=== PATIENT | female | born 1975 | race Caucasian/White ===

== ENCOUNTER 2021-01-16 11:01 | Emergency (ER) | payer MEDICAID, SELFPAY ==
--- NOTE | ~2021-01-16 | XR_ITS ---
EXAMINATION: LEFT FOOT AND LEFT ANKLE. CLINICAL INFORMATION: Swelling post crush injury. COMPARISON: None TECHNIQUE: Left foot 3 views. Left ankle 2 views. : FINDINGS: LEFT FOOT: There is no visible acute fracture, dislocation or subluxation. The soft tissues are normal. LEFT ANKLE: The ankle mortise and subtalar joints are normal. No acute fracture dislocation. The soft tissues are normal. XR/XR foot LT 2V IMPRESSION: Unremarkable left foot exam. Unremarkable left ankle exam.
--- NOTE | ~2021-01-16 | XR_ITS ---
EXAMINATION: LEFT FOOT AND LEFT ANKLE. CLINICAL INFORMATION: Swelling post crush injury. COMPARISON: None TECHNIQUE: Left foot 3 views. Left ankle 2 views. : FINDINGS: LEFT FOOT: There is no visible acute fracture, dislocation or subluxation. The soft tissues are normal. LEFT ANKLE: The ankle mortise and subtalar joints are normal. No acute fracture dislocation. The soft tissues are normal. XR/XR ankle LT min 3V IMPRESSION: Unremarkable left foot exam. Unremarkable left ankle exam.
[2021-01-16 11:30] VITALS: BP 109/76; PULSE 85; RESP 16; TEMP 36.8; O2SAT 98; BMI 24.7
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
== END 2021-01-16 12:31 | disposition home or self-care (01) ==
PROVIDERS: Emergency Provider Emergency Medicine Emergency Medical Services
DX: M79.672 Pain in left foot (principal)
CPT/HCPCS: 73610; 73620; 99283

== ENCOUNTER 2021-04-29 12:14 | Emergency (ER) | payer MEDICAID, SELFPAY ==
[2021-04-29 13:20] VITALS: BP 129/92; PULSE 69; RESP 18; TEMP 36.8; O2SAT 99; BMI 23.9
--- NOTE | 2021-04-29 15:10 | ED_ITS ---
HPI - Extremity Injury (Lower) General Chief Complaint: Extremity Injury, Lower Stated Complaint: ACL tear/inj Time Seen by Provider: 04/29/21 12:16 Source: patient Mode of arrival: ambulatory Limitations: no limitations History of Present Illness HPI Narrative: 45-year-old female presenting to the ED with complaints of left knee injury possible ACL tear. She reports that she was seen at the urgent care approxim ately last weekend after she had a fall while she was skiing and they did an x- ray and told her there was no broken bones although they explain examined her and reported that she possibly has an ACL tear. They explained to her that she will need an MRI. Therefore she tried to follow-up with her PCP and her PCP reported that they no longer take her insurance therefore she came here for ?an MRI?. She is currently in a knee immobilizer along with crutches and is taking Motrin and Tylenol and is providing mild symptomatic relief. She reports that she does not want any pain medications that she just wants an MRI today and she does not want to leave without her MRI today. She denies any new injuries complaints or concerns or falls. MD complaint: knee injury Onset (ago): week(s) (Last week) Injury: Left: knee Type of Injury: unknown Place: street/outdoors (While skiing) Severity: severe Severity scale (1-10): >10 Relieving factors: nothing Exacerbating factors: weight bearing, movement and palpation Context: fall Associated symptoms: swelling, numbness, tingling and unable to bear weight Other symptoms: none Treatments prior to arrival: other (Knee immobilizer and crutches) Related Data Allergies Allergy/AdvReac Type Severity Reaction Status Date / Time No Known Allergies Allergy Verified 04/29/21 13:20 Review of Systems Review of Systems: Constitutional : No Weight loss, No Fever, No Chills, No Night Sweats, No Fatigue, No Malaise ENT/Mouth : No Hearing loss, No Ear Pain, No Nasal Congestion, No Sinus Pain, No Hoarseness, No sore throat, No Rhinorrhea, No Swallowing Difficulty Eyes: No Eye Pain, No Swelling, No Redness, No Foreign Body, No Discharge, No Vision Changes Cardiovascular : No Chest Pain, No SOB, No Dyspnea on Exertion, No Orthopnea, No Edema, No Palpitations Respiratory : No Cough, No Sputum, No Wheezing, No Smoke Exposure, No Dyspnea Gastrointestinal : No Nausea, No Vomiting, No Diarrhea, No Constipation, No abdominal Pain, No Hematochezia, No Melena Genitourinary : no irregular bleeding, No Dysuria, No Urinary Frequency, No Hematuria, No Urinary Incontinence, No Urgency, No Flank Pain, No Urinary Flow Changes, No Hesitancy Musculoskeletal : + joint pain/swelling to left knee, No Myalgias Skin : No Skin Lesions, No rash Neuro : No Weakness, No Numbness, No Paresthesias, No Loss of Consciousness, No Dizziness, No Headache Psych : No Anxiety/Panic, No Depression, No SI/HI/AH/VH, No Social Issues, Heme/Lymph: No Bruising, No Bleeding,No Lymphadenopathy Endocrine : No Polyuria, No Polydipsia, No Temperature Intolerance Yes all other systems are reviewed and are negative [facility] Past Medical History Attestation statement: The following information was validated with the patient. Social History Social History Advance Directives: No Advance Directives Information Provided: No Physical Exam Vital Signs: Vital Signs: Last Vital Signs Temp 98.3 F 04/29/21 13:20 Pulse 69 04/29/21 13:20 Resp 18 04/29/21 13:20 BP 129/92 H 04/29/21 13:20 Pulse Ox 99 04/29/21 13:20 BMI result Body Mass Index 23.9 vital signs have been reviewed as normal and appeared to be correct. Blood pressure 129/92 Heart rate normal. Respiration rate normal. Temperature normal. Oxygen saturation normal. Appearance: Alert. Oriented X3. No acute distress. Head: Normal external exam. Normocephalic. Atraumatic. Eyes: PERRLA. EOMI. Conjunctiva and sclera normal. Eyelids normal. ENT: Pharynx normal. Uvula midline. Moist mucous membranes. Neck: Normal inspection. Neck supple. FROM. CVS: Normal heart rate and rhythm. Respiratory: No respiratory distress. Painless inspiration. Skin: Skin warm and dry. Normal skin color. Normal skin turgor. No rashes/lesions/lacerations noted. Extremities: patient has knee immobilizer to left leg when removed patient has moderate TTP to entire left knee c STS and ecchymosis. No obvious laxity noted. No obvious deformity. Achilles tendon intact not ruptured. No lower extremity edema. No calf tenderness. Otherwise all other Extremities exhibit normal range of motion and nontender. Neuro: Oriented X 3. No motor deficit. No sensory deficit. Reflexes normal. No focal neuro deficits noted. Vascular: + radial pulses/+ 2 distal pedal pulses/+2 dorsalis pedis b/l. Normal cap refill. No cyanosis noted to upper extremity nails and lower extremity toes nails. Course Course Course Narrative: 45-year-old female presenting to the ED with complaints of left knee injury possible ACL tear. She reports that she was seen at the urgent care approximately last weekend after she had a fall while she was skiing and they did an x-ray and told her there was no broken bones although they explain examined her and reported that she possibly has an ACL tear. They explained to her that she will need an MRI. Therefore she tried to follow-up with her PCP and her PCP reported that they no longer take her insurance therefore she came here for ?an MRI?. She is currently in a knee immobilizer along with crutches and is taking Motrin and Tylenol and is providing mild symptomatic relief. She reports that she does not want any pain medications that she just wants an MRI today and she does not want to leave without her MRI today. She denies any new injuries complaints or concerns or falls. I explained to the patient that the other ER did not do an MRI because we do not do emergent MRI for possible ACL or MCL or LCL tears and the patient was very upset about this. She reports that she wants an MRI and she did not want to leave without an MRI. I explained to her that her insurance will not cover it and that she would have to possibly pay [id number] for the MRI. I explained to her that she will need to follow up within orthopedics and be re-examined possibly reimage and if they believe she needs an MRI then they would order 1. Therefore explained to her that I will give her referral for Orthopedic Dr. Tawny aldrich office and that she should call them today for further evaluation and treatment. She reports that she does not need anything for pain because she is currently on Motrin and Tylenol and she does not want any narcotics. Therefore at this time she will be discharged with instructions follow-up orthopedic and to return if any new or worsening symptoms. Patient understands agrees with this plan. MDM - Extremity Injury (Lower) Medical Records Attestation: I reviewed the patient's medical records. Discharge Plan Discharge Clinical Impression: Injury of knee, left Patient Disposition: Home, Self-Care Instructions: Knee Pain (ED) Referrals: Norman Branch MD [Physician] - 2 weeks (Call today to make a follow-up ) Print Language: Com[place]an
--- NOTE | 2021-04-29 15:14 | PC.NURSE ---
PT ON CELL PHONE WHEN THIS RN ENTERED ROOM TO DISCHARGE PATIENT. PT NOT GETTING OFF PHONE TO SPEAK TO ME AT THIS TIME. THIS RN LEFT ROOM AND WILL RE APPROACH.
== END 2021-04-29 15:18 | disposition home or self-care (01) ==
PROVIDERS: Emergency Provider Emergency Medicine
DX: S89.92XA Unspecified injury of left lower leg, initial encounter (principal); M79.605 Pain in left leg; Y93.23 Activity, snow (alpine) (downhill) skiing, snowboarding, sledding, tobogganing and snow tubing; Y92.838 Other recreation area as the place of occurrence of the external cause; Y99.8 Other external cause status
CPT/HCPCS: 99282; 99283

== ENCOUNTER 2021-05-05 08:40 | Outpatient (REF) | payer MEDICAID, SELFPAY ==
--- NOTE | ~2021-05-05 | XR_ITS ---
EXAMINATION: XR KNEES, STANDING AP XR KNEE, LEFT CLINICAL INFORMATION: Knee pain. COMPARISON: Radiographs right knee 04/21/2019 TECHNIQUE: Standing AP view of both knees is performed along with lateral and axial patella views of the left knee. FINDINGS: There is normal bony mineralization. There is no fracture or dislocation. Left knee shows no joint narrowing or erosive change or chondrocalcinosis. Axial view left patella shows no lateralization or tilting. There is no left effusion. Hoffa's fat pad appears normal. The right knee shows no narrowing medial lateral compartments, erosive change, or chondrocalcinosis. XR/XR knee LT 2V IMPRESSION: Unremarkable bilateral knees.
--- NOTE | ~2021-05-05 | XR_ITS ---
EXAMINATION: XR KNEES, STANDING AP XR KNEE, LEFT CLINICAL INFORMATION: Knee pain. COMPARISON: Radiographs right knee 04/21/2019 TECHNIQUE: Standing AP view of both knees is performed along with lateral and axial patella views of the left knee. FINDINGS: There is normal bony mineralization. There is no fracture or dislocation. Left knee shows no joint narrowing or erosive change or chondrocalcinosis. Axial view left patella shows no lateralization or tilting. There is no left effusion. Hoffa's fat pad appears normal. The right knee shows no narrowing medial lateral compartments, erosive change, or chondrocalcinosis. XR/XR knee standing BI IMPRESSION: Unremarkable bilateral knees.
== END 2021-05-05 08:41 | disposition home or self-care (01) ==
LOC: HO.HOSX 08:40
PROVIDERS: Visit Provider Physician Assistant
DX: M23.92 Unspecified internal derangement of left knee (principal); S89.92XA Unspecified injury of left lower leg, initial encounter; M25.561 Pain in right knee
CPT/HCPCS: 73560; 73565; 99202

== ENCOUNTER 2021-10-31 13:54 | Outpatient (REF) | payer MEDICAID, SELFPAY ==
--- NOTE | ~2021-10-31 | MM_ITS ---
EXAMINATION: MM SCREENING DIGITAL BREAST TOMOSYNTHESIS, BILATERAL CLINICAL INFORMATION: Screening. Asymptomatic. Age 45. No prior breast imaging. No known family history breast cancer. The lifetime risk of breast cancer based on the Tyrer-Cuzick Model is 9%. COMPARISON: None (current study represents initial baseline exam). TECHNIQUE: Digital breast tomosynthesis is performed in both the craniocaudal and mediolateral oblique views along with computer-aided detection (CAD). Synthesized 2D images are generated from the tomosynthesis. FINDINGS: The breasts are heterogeneously dense, which may obscure small masses (ACR BI-RADS breast composition Category c). There is oval asymmetry posterior 8:30 left breast under 2 cm possibly a cyst. Patient will be recalled to further characterize baseline appearance. The remainder of the breasts show no significant mass or architectural abnormality. No abnormal calcifications. The axilla and skin contours are unremarkable. MM/MM tomosynthesis screening BI IMPRESSION: Left: -Normal asymmetry posterior medial breast, possibly fibrocystic changes. Right: -No mammographic evidence of malignancy. ASSESSMENT: BI-RADS 0: Incomplete - Need Additional Imaging Evaluation RECOMMENDATION: 1. Additional views of the left breast (spot CC, spot LM). 2. Targeted ultrasound if warranted after review of the additional views. 3. Radiology department staff will contact the patient for additional imaging. This patient's information was entered into a reminder system with a target due date for their next mammogram.
== END 2021-10-31 13:55 | disposition home or self-care (01) ==
LOC: HO.MAMMO 13:54
PROVIDERS: Visit Provider Registered Nurse
DX: Z12.31 Encounter for screening mammogram for malignant neoplasm of breast (principal)
CPT/HCPCS: 77063; 77067

== ENCOUNTER 2021-11-19 09:29 | Outpatient (REF) | payer MEDICAID, SELFPAY ==
--- NOTE | ~2021-11-19 | MM_ITS ---
EXAMINATION: MM DIAGNOSTIC DIGITAL BREAST TOMOSYNTHESIS, LEFT US DIAGNOSTIC ULTRASOUND BREAST, LEFT CLINICAL INFORMATION: Recall from baseline screening for oval asymmetry lower inner left breast. TC score 9%. COMPARISON: Mammography: 10/31/2021 TECHNIQUE: Digital breast tomosynthesis is performed. 2D images are generated from the tomosynthesis. The following views are obtained: Spot CC, spot LM. Ultrasound left breast is targeted to the lower inner quadrants. Grayscale imaging and color Doppler are performed without and with harmonics. FINDINGS: The breasts are heterogeneously dense, which may obscure small masses (ACR BI-RADS breast composition Category c). The additional spot views demonstrate vague area of oval parenchymal asymmetry corresponding to the area of recall. There is no architectural abnormality or associated calcifications. Ultrasound demonstrates a circumscribed oval solid mass parallel with the skin measuring approximately 2.5 x 1.1 x 2.3 cm, at 8:00 position approximately 4 cm from nipple. This corresponds to finding on mammography and most likely represents a fibroadenoma. There is no other cystic or solid mass in the interrogated area. Results and management options are discussed with the patient at time of visit. Patient confirms palpable fullness in the area for recall. MM/MM tomosynthesis added views L IMPRESSION: -Oval solid mass lower inner quadrant left breast measuring 2.5 cm, likely fibroadenoma. ASSESSMENT: BI-RADS 4: Suspicious (subcategory 4A: Low suspicion for malignancy) RECOMMENDATION: Ultrasound-guided core biopsy left breast mass. This patient's information was entered into a reminder system with a target due date for their next mammogram.
== END 2021-11-19 09:30 | disposition home or self-care (01) ==
LOC: HO.MAMMO 09:29
PROVIDERS: Visit Provider Registered Nurse
DX: R92.2 Inconclusive mammogram (principal)
CPT/HCPCS: 76642; 77061; 77065

== ENCOUNTER 2021-11-20 07:51 | Outpatient (REF) | payer MEDICAID, SELFPAY ==
--- NOTE | ~2021-11-20 | MM_ITS ---
EXAMINATION: ULTRASOUND GUIDED CORE BIOPSY BREAST, LEFT POST PROCEDURE DIGITAL BREAST TOMOSYNTHESIS, LEFT CLINICAL INFORMATION: Solid mass medial left breast 2.5 cm, likely fibroadenoma. COMPARISON: Mammography 10/31/2021, 11/19/2021, left breast ultrasound 11/19/2021. FINDINGS: Proper informed consent is obtained from the patient after discussion of the procedure, potential risks and complications, and alternatives. Patient was given an opportunity for questions. The patient appeared to understand. The patient consented to the procedure and signed the consent form. GUIDANCE: Ultrasound-guided; aseptic technique. LESION: Circumscribed solid mass 8:00 left breast 2.5 x 1.1 x 2.3 cm. Suspect fibroadenoma. APPROACH: Medial lateral. ANESTHESIA: 10 mL carbonated 1% lidocaine. DERMATOTOMY: Single skin brunilda dermatotomy performed. NEEDLE: 14-gauge Achieve core biopsy device with 13.5-gauge co-axial guide needle. CORES: 4. CLIP: HydroMARK; shape: butterfly. POST PROCEDURE DIGITAL BREAST TOMOSYNTHESIS, LEFT: The post biopsy mammogram is performed in separate room using separate digital breast tomosynthesis equipment from the biopsy procedure. CC and ML views are obtained. Synthesized 2-D images are generated from the tomography.The breasts are heterogeneously dense, which may obscure small masses (breast composition category: c). The clip marker is in position and corresponds to mass noted on the initial mammography. No gross hematoma. The patient tolerated the procedure well. No immediate complications. Home instructions reviewed with the patient. Final pathology results are pending. MM/MM tomosynthesis diagnostic LT IMPRESSION: 1. Status post ultrasound-guided core biopsy left breast. 2. Clip placed: HydroMARK; shape: butterfly. 3. Pathology pending. An addendum report will be issued.
[2021-11-20] MEDS: Sodium Bicarbonate 8.4% 50 MEQ/50 ML VIAL SUBCUT (09:04)
[2021-11-20] MEDS: Lidocaine HCl 1 % 20 ML VIAL 9 ML SUBCUT (09:05)
== END 2021-11-20 07:52 | disposition home or self-care (01) ==
LOC: HO.MAMMO 07:51
PROVIDERS: Visit Provider Registered Nurse
DX: R92.2 Inconclusive mammogram (principal)
CPT/HCPCS: 19083; 77061; 77065; 88305; 88341; 88342

== ENCOUNTER → 2021-12-15 14:05 | Outpatient (BNVA) | payer MEDICAID, SELFPAY | PROVIDERS: PCP Registered Nurse; Referring Provider Registered Nurse; Visit Provider Surgery | DX: D24.9 Benign neoplasm of unspecified breast (principal) | CPT/HCPCS: 99202 ==

== ENCOUNTER 2021-12-23 09:36 | Day surgery (SDC) | payer MEDICAID, SELFPAY ==
--- NOTE | 2021-12-22 09:11 | HO.ANESPROP2 ---
Documented by User: Judith Cortez NP 12/22/21 09:12 HPI - Anesthesia Eval Consult details Narrative: 46yo F for Left Excision of fibroadenoma on breast PMFSH Active Problems Active Problems: All Active Problems (Updated 12/15/21 @ 14:41 by Cullen Breaux MD) Fibroadenoma (Acute) Acute injury of left anterior cruciate ligament (Acute) Internal derangement of left knee (Acute) Anxiety (Acute) Past Medical History Medical History Fibroadenoma Surgical History Surgical History (Updated 12/23/21 @ 10:44 by Meghann Mcqueen MD) Hx of tooth extraction Social History Social History (Updated 12/23/21 @ 10:45 by Meghann Mcqueen MD) Patient Tobacco Use Status: Current everyday Tobacco user Tobacco use type: Cigarette Cigarettes Per Day: 3 Smoked in Last 30 Days: Yes Use of substances other than those prescribed or required for medical reasons: Yes Substance Use Type: Marijuana Substance Use Frequency: Daily Last Used Substance: Hours (ago) Currently Displaying Signs/Symptoms of Drug Intoxication Withdrawal: No Are you DNR?: No Advance Directives: No Advance Directives Information Provided: Yes Advance Directives on File: No Meds Allergies Allergy/AdvReac Type Severity Reaction Status Date / Time No Known Allergies Allergy Verified 12/15/21 14:14 Exam Exam Date and Time: December 22, 2021 0911 Assessment and Plan Assessment Anesthesia Assessment: Chart Reviewed Documented by User: Meghann Mcqueen MD 12/23/21 10:48 PMFSH Active Problems Active Problems: All Active Problems (Updated 12/15/21 @ 14:41 by Cullen Breaux MD) Fibroadenoma (Acute) Acute injury of left anterior cruciate ligament (Acute) Internal derangement of left knee (Acute) Anxiety (Acute) Smoker Marijuana Past Medical History Medical History Fibroadenoma Family History Family history of problems with anesthesia: Yes (Grandmother 'always coded' with anesthesia.'They kept trying to change the medicines for anesthesia'. No other history available ) Surgical History Surgical History (Updated 12/23/21 @ 10:44 by Meghann Mcqueen MD) Hx of tooth extraction History of Problems with Anesthesia: No Social History Social History (Updated 12/23/21 @ 10:45 by Meghann Mcqueen MD) Patient Tobacco Use Status: Current everyday Tobacco user Tobacco use type: Cigarette Cigarettes Per Day: 3 Smoked in Last 30 Days: Yes Use of substances other than those prescribed or required for medical reasons: Yes Substance Use Type: Marijuana Substance Use Frequency: Daily Last Used Substance: Hours (ago) Currently Displaying Signs/Symptoms of Drug Intoxication Withdrawal: No Are you DNR?: No Advance Directives: No Advance Directives Information Provided: Yes Advance Directives on File: No Meds Allergies Allergy/AdvReac Type Severity Reaction Status Date / Time No Known Allergies Allergy Verified 12/15/21 14:14 Exam Height,Weight and Vital Signs: Height 5 ft 3 in Weight 58.967 kg Vital Signs Temp Pulse Resp BP Pulse Ox O2 Del Method 12/23/21 10:25 97.8 F 68 18 122/76 99 Room Air Pertinent Lab Results Pertinent Lab Results: Lab Results 12/23/21 Range/Units 10:28 Urine Test NEGATIVE (NEGATIVE) Airway Mallampati Class: II TM Dist: >3cm Neck ROM: Full Partial: Upper Heart: RRR Lungs: CTAB Assessment and Plan Assessment Anesthesia Assessment: Anesthesia Plan Discussed Final Anesthetic Review Family History of Problems with Anesthesia: Yes (Grandmother 'always coded' with anesthesia.'They kept trying to change the medicines for anesthesia'. No other history available ) History of Problems with Anesthesia: No NPO: Yes ASA Class: II Final Preanesthetic Review: No Changes in Pt Med Stat, Meds/Allgs Chart Reviewed, Consent Obtained/Reviewed and Anes Risks/Benef Reviewed Patient Risk: Low Procedure Risk: Low Assessment/Block/Sedation in SS: Assess/Block/Sedation-SS Anesthetic Plan Anesthetic Plan: GA (TIVA) Disposition: Standard PACU
[2021-12-23] VITALS (7 sets, daily range): BP systolic 107–122; BP diastolic 55–76; PULSE 30–68; RESP 16–18; TEMP 36.2–36.9; O2SAT 97–100; BMI 23.0
[2021-12-23] MEDS: Lactated Ringers 1,000 ML 100 ML IVCONT (09:56)
--- NOTE | 2021-12-23 10:27 | MHC.SHP ---
Pre-Procedural Eval Section A Date of Service: 12/23/21 The patient is an INPATIENT: No Changes since office visit: No Cold of Flu in the past 2 weeks, No New Medical Problems, No Changes in Medication and No Patient answered all questions The History & Physical has been completed within 30 days and I have reviewed it.: Yes Section B Chief Complaint: Benign neoplasm of left breast Allergies: Allergies Allergy/AdvReac Type Severity Reaction Status Date / Time No Known Allergies Allergy Verified 12/15/21 14:14 Plan I have reviewed the history and physical and performed a pertinent physical examination on my patient. No changes have occurred unless specified.
[2021-12-23 10:42] LABS: UPreg QC Valid YES; Urine Pregnancy NEGATIVE (NEGATIVE)
--- NOTE | 2021-12-23 11:27 | W.PM.OPN ---
Operative Note Operative Note Date of Service: 12/23/21 Narrative: Preop diagnosis: Fibroadenoma left breast Postop diagnosis: The same Procedure: Excision of the adenoma, left breast under anesthesia Surgeon: Cullen Breaux MD assistant director of public works: YUN Brizuela The patient is a 46-year-old female with palpable left breast mass. Ultrasound showed a 2.5 cm has see above a fibroadenoma. This was also noted on her ultrasound-guided biopsy. She wanted to have the fibroadenoma excised because comfort and increase in size. She stated she was quite anxious about this. She understood technique of excision under anesthesia and was aware of the risks, benefits, and alternatives. She was brought to the operating room and placed supine under monitored anesthesia care. The left breast was prepped and draped in the usual sterile fashion. A surgical time-out was done. The patient received cefazolin 2 g IV preoperatively. The fibroadenoma was palpable on the medial aspect of the left breast. I infiltrated the planned incision with lidocainen 1%. I made a transverse incision using a blade 15. this was carried down with electrocautery through the full-thickness of the skin subcutaneous fat until the fibroadenomatous tissue was visualized. I continued to sharply dissect around this mass this using electrocautery and Metzenbaum scissors. I used Allis clamps to retract the specimen and rotate the lesion while dissecting posteriorly. The entire mass was then completely delivered and sent as specimen. I cauterized oozing areas. I observed for hemostasis. Once hemostasis was ensured, I reapposed deep subcutaneous tissue with Dexon 3-0 interrupted sutures. Skin closure was achieved with Dexon 4-0 subcuticular running stitch. The area was infiltrated with Marcaine 0.5% for postop analgesia. Dressings were applied. The procedure was then completed. The patient tolerated the procedure well. There were no immediate complications. Estimated blood loss was about 25 cc. Initial and final counts of sponges and instruments correct The patient was extubated without difficulty and transferred to recovery room with stable vital signs.
[2021-12-23] MEDS: Acetaminophen 325 MG TABLET 650 MG PO (12:11)
[2021-12-23] MEDS: oxyCODONE HCl Immed Release 5 MG TABLET PO (12:12)
[2021-12-23] MEDS: Ketorolac Tromethamine 30 MG/ML VIAL 15 MG IVPUSH (12:13)
== END 2021-12-23 12:57 | disposition home or self-care (01) ==
PROVIDERS: Nurse Practitioner; PCP Registered Nurse; Visit Provider Surgery
PROC: (CPT 19120; principal; 2021-12-23 11:30)
DX: D24.2 Benign neoplasm of left breast (principal); F41.1 Generalized anxiety disorder; F17.210 Nicotine dependence, cigarettes, uncomplicated; F12.90 Cannabis use, unspecified, uncomplicated
CPT/HCPCS: 19120; 81025; 88305; J0690; J1170; J1885; J2250; J2405; J2795; J3010